=== PATIENT | female | born 1945 | race African-American/Black ===

== ENCOUNTER → 2021-05-16 | Day surgery (SDC) | payer MEDICARE, BC ==
[~2021-05-16] VITALS: Ht 172.7 cm; Wt 104.3 kg
[~2021-05-16] MED LIST: AZIL80TA PO; BACITRACIN 15GM TUBE TOP ONE; BUPIVACAINE HCL/PF 0.5% (5MG/ML) 10ML ONE; CEFAZOLIN SODIUM 1000MG/VIAL ONE; CHOL100046 PO; CRES10 PO; CYAN500T47 PO; DEXAMETHASONE 4MG/ML 1ML VIAL ONE; DYZ PO; LACTATED RINGERS 1,000 ML IV SCH; LIDOCAINE HCL 1% 20ML VIAL (Pyxis) INJ ONE; MAGN250T29 PO; MIDAZOLAM HCL 2 MG/2 ML VIAL ONE; POLYMYXIN B SULFATE 500000 UNITS/VIAL ONE; PROPOFOL 200MG/20ML VIAL IV ONE; SODIUM BICARBONATE 8.4% 1 MEQ/ML 50ML SYR IV ONE; SUCCINYLCHOLINE CHLORIDE 200MG/10ML IV ONE; TRIAMCINOLONE ACETONIDE 40MG/ML 1ML VIAL ONE; VANCOMYCIN HCL 1 GM/VIAL ONE; ZINC50TA69 PO
== END | disposition home or self-care (01) ==
LOC: OR 13:26
PROVIDERS: ATTEND Podiatrist Foot & Ankle Surgery
DX: M25.871 Other specified joint disorders, right ankle and foot (principal); M79.671 Pain in right foot; M19.071 Primary osteoarthritis, right ankle and foot; I10 Essential (primary) hypertension; E78.5 Hyperlipidemia, unspecified; Z79.899 Other long term (current) drug therapy; Z98.890 Other specified postprocedural states; Z20.822 Contact with and (suspected) exposure to COVID-19
CPT/HCPCS: 11420; 28110; 87426; 88311; J0330; J0690; J2250; J2704; J3301; J3370; J3490; J1100